=== PATIENT | male | born 1955 | race Caucasian/White ===

== ENCOUNTER → 2018-09-12 | Outpatient (CLI) | payer BC | LOC: BMCIMAGING 17:06 | PROVIDERS: ATTEND Family Medicine | DX: S62.391A Other fracture of second metacarpal bone, left hand, initial encounter for closed fracture (principal); S62.393A Other fracture of third metacarpal bone, left hand, initial encounter for closed fracture; S62.395A Other fracture of fourth metacarpal bone, left hand, initial encounter for closed fracture ==

== ENCOUNTER → 2018-12-12 | Outpatient (CLI) | payer BC | LOC: FIMAGING 14:50 | PROVIDERS: ATTEND Internal Medicine | DX: R91.1 Solitary pulmonary nodule (principal) ==